=== PATIENT | female | born 1945 | race Caucasian/White ===

== ENCOUNTER 2020-02-14 20:46 | Emergency (ER) | payer MEDICARE ==
[~2020-02-14] VITALS: Ht 165.1 cm; Wt 81.6 kg
[2020-02-14] MEDS ORDERED: TRAMADOL HCL 50 MG TAB PO ONE (21:00)
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
--- NOTE | 2020-02-14 22:12 | Diagnostic Imaging Report ---
X-ray right ankle 3 views HISTORY: Pain. COMPARISON: None available. FINDINGS: Bones: No acute displaced fracture. Osseous alignment is within normal limits. Joints: The joint spaces are well-maintained. Soft tissues: Soft tissue swelling about the ankle. IMPRESSION: No acute radiographic osseous abnormality. Soft tissue swelling about the ankle. Signed by: Laron Azar DO on 02/14/2020 10:09 PM
--- OUTSIDE RECORDS SUMMARY | 2020-02-15 09:24 | XMS REPORT | Continuity of Care Document ---
Author Author [facility] t Organization [facility] Address [address] [place] [address] Phone Unavailable Care Team Providers Care Truck Dock Material Mover Name Role Phone MD ZOYA COOL PCP Gabriel MONTEZ Attkia Unavailable Payers Payer Name Policy Type Policy Number Effective Date Expiration Date Marga archibald [employer] [facility] [id number] [facility] Problems Condition Name Condition Details Condition Category Status Onset Date Resolution Date Last Treatment Date Treating Clinician Comments Source Sprain of right ankle Problem Active [facility] Allergies, Adverse Reactions, Alerts This patient has no known allergies or adverse reactions. Social History Social Habit Start Date Stop Date Quantity Comments Source Sex Assigned At 1945 00:00:00 1945 00:00:00 Female [facility] Medications This patient has no known medications. Vital Signs Vital Name Observation Time Observation Value Comments Source Weight 2020-02-14 20:58:00 180 [lb_av] [facility] BMI (Body Mass Index) 2020-02-14 20:58:00 30.0 kg/m2 [facility] Procedures This patient has no known procedures. Plan of Care Planned Activity Planned Date Details Comments Source Instructions Crutch Use [facility] Instructions Sprains - [facility] Encounters Start Date/Time End Date/Time Encounter Type Admission Type Attendi [facility] Care Department Encounter ID Source 2020-02-14 20:51:00 2020-02-14 23:01:00 Departed Emergency Room 1 PRATIK MONTEZ [facility] [id number] [facility] Results Test Description Test Time Test Comments Results Result Comments Source ANKLE 3 + VIEWS RIGHT 2020-02-14 22:07:00 [facility] 1945 Sex: F [facility] [address] [place] [address] Patient Name: ROSALEE HARO MR #: [id number] : 1945 Age/Sex: 74/F Req #: [id number] [facility] Physician: Ordered by: PRATIK MONTEZ MD Report #: [id number] Location: Room/Bed: Procedure: [id number] DX/ANKLE 3 + VIEWS RIGHT Exam Date: 02/14/20 Exam Time: 2132 REPORT STATUS: Signed X-ray right ankle 3 views HISTORY: Pain. COMPARISON: None available. FINDINGS: Bones: No acute displaced fracture. Osseous alignment is within normal limits. Joints: The joint spaces are well-maintained. Soft tissues: Soft tissue swelling about the ankle. IMPRESSION: No acute radiographic osseous abnormality. Soft tissue swelling about the ankle. Signed by: Laron Azar DO on 02/14/2020 10:09 PM Dictated By: LARON AZAR DO 08 Transcribed By: LASHAE on 02/14/202208 COPY TO: PRATIK MONTEZ MD SCR MAMM BILATERAL RUY CAD DIGITAL 2020-01-13 13:47:32 - SCR MAMM BILATERAL RUY CAD DIGITALBILATERAL DIGITAL SCREENING MAMMOGRAM 3D/2D WITH CAD: 01/13/2020CLINICAL: Asymptomatic. Digital breast tomosynthesis was performed in addition to routine CC and MLO views. Current mammographic images were evaluated by either a [employer] or a [employer] CAD (computer aided detection system). Comparison is made to exams dated 02/11/2018 mammogram, 11/27 mammogram, and 04/06/2015 mammogram - [facility]. There are scattered fibroglandular tissues in both breasts. No suspicious mass, architectural distortion, malignant type calcification, or lymph node abnormality detected. Breast architecture is stable compared to prior exams.IMPRESSION: NEGATIVEThere is no mammographic evidence of malignancy. Resume annual screening mammography in one year. Spencer Higgins M.D. ss/penrad:01/13/2020 13:47:32 Door Installer: Mi BRYSON, [facility] sent: BIRADS 1-2 Normal Mammogram BI-RADS: 1 Negative
== END 2020-02-14 23:01 | disposition home or self-care (01) ==
LOC: ER 20:51
DX: S93.401A Sprain of unspecified ligament of right ankle, initial encounter (principal); X50.1XXA Overexertion from prolonged static or awkward postures, initial encounter; I10 Essential (primary) hypertension
CPT/HCPCS: 99283